=== PATIENT | male | born 1985 | race Caucasian/White ===

== ENCOUNTER 2020-12-29 19:58 | Emergency (ER) | payer OTHER ==
[2020-12-29] MEDS ORDERED: Sodium Chloride 0.9% 10 ML Syringe FLUSH PRN (20:43)
[2020-12-29] MEDS ORDERED: Sodium Chloride 0.9% 1,000 ML IV SCH (20:45)
[2020-12-29] MEDS ORDERED: Clindamycin Phosphate in D5W 900 MG in Premix Bag 1 BAG IV ONE ×2 (20:46)
[2020-12-29] MEDS ORDERED: Ondansetron 4 MG/2 ML SDV IVPUSH ONE (20:47)
--- NOTE | 2020-12-29 20:53 | EDM.PDOC ---
ED HPI GENERAL MEDICAL PROBLEM - General Chief Complaint: ENT Problem Stated Complaint: FACIAL NUMBNESS AND TINGLING, SHAKING AND SOB Time Seen by Provider: 12/29/20 20:10 Source of Information: Reports: Patient History Limitations: Reports: No Limitations - History of Present Illness INITIAL COMMENTS - FREE TEXT/NARRATIVE: The patient presents with left sided facial pain. This started yesterday and he went to the walk in clinic today and he was prescribed clindamycin for a possible sinus infection or tooth infection. He took 2 doses today. He now has fever, chills, left sided head and facial pain. He has no chest pain, shortness of breath, cough, abdominal pain or vomiting. He has some nausea. He also has been "out of it" and not responding like normal according to his . He has no health problems. He said earlier his teeth did hurt but now it is more his face. He also has pain to the left ear. Onset: Gradual Duration: Day(s): Location: Reports: Face Quality: Reports: Sharp Severity: Moderate Improves with: Reports: None Worsens with: Reports: None Associated Symptoms: Reports: Fever/Chills, Headaches. Denies: Chest Pain, Cough, Nausea/Vomiting, Shortness of Breath Left Cheek Pain Score (Numeric/FACES): 8 - Related Data Allergies Allergy/AdvReac Type Severity Reaction Status Date / Time bee pollen Allergy Severe Cannot Verified 12/29/20 20:11 Remember cefaclor [From Ceclor] Allergy Severe Cannot Verified 12/29/20 20:11 Remember Penicillins Allergy Severe Cannot Verified 12/29/20 20:11 Remember Past Medical History Cardiovascular History: Reports: High Cholesterol Musculoskeletal History: Reports: Other (See Below) Other Musculoskeletal History: right shoulder and hip pain - Past Surgical History Musculoskeletal Surgical History: Reports: Other (See Below) Other Musculoskeletal Surgeries/Procedures:: right hip surgery x2 Social & Family History - Tobacco Use Tobacco Use Status *Q: Never Tobacco User Second Hand Smoke Exposure: No - Recreational Drug Use Recreational Drug Use: No ED ROS ENT - Review of Systems Review Of Systems: See Below Constitutional: Reports: Fever, Chills, Malaise, Weakness, Fatigue HEENT: Reports: Ear Pain, Other (left sided facial pain) Respiratory: Reports: No Symptoms Cardiovascular: Reports: No Symptoms Endocrine: Reports: No Symptoms GI/Abdominal: Reports: No Symptoms : Reports: No Symptoms Musculoskeletal: Reports: No Symptoms ED EXAM, ENT - Physical Exam Exam: See Below Exam Limited By: No Limitations General Appearance: Alert, No Apparent Distress Ears: Normal External Exam, Normal Canal, Normal TMs Nose: Normal Inspection Mouth/Throat: Other (Pain upon palpation to the left upper gum line with some erythema and edema. Throat looks normal.) Head: Atraumatic, Normocephalic, Other (pain upon palpation to the left side of his face) Neck: Normal Inspection, Supple, Non-Tender Respiratory/Chest: No Respiratory Distress, Lungs Clear, Normal Breath Sounds Cardiovascular: Regular Rate, Rhythm, No Edema, No Murmur GI/Abdominal: Soft, Non-Tender, No Organomegaly, No Mass Back: Normal Inspection Extremities: Normal Inspection Course - Vital Signs Last Recorded V/S: Last Vital Signs Temp 99.0 F 12/29/20 21:29 Pulse 109 H 12/29/20 21:29 Resp 16 12/29/20 21: BP 122/97 H 12/29/20 21:29 Pulse Ox 98 12/29/20 22:03 - Orders/Labs/Meds Orders: Active Orders 24 hr Category Date Time Status Cardiac Monitoring [RC] . DIRECTED Care 12/29/20 20:44 Active Peripheral IV Care [RC] . DIRECTED Care 12/29/20 20:44 Active Head wo Cont [CT] Stat Exams 12/29/20 20:44 Ordered Maxillofacial w/o CM [Max Facial Sinus wo Cont] [CT] Exams 12/29/20 20:45 Taken Stat Sodium Chloride 0.9% [Normal Saline] 1,000 ml Med 12/29/20 20:45 Active IV .BOLUS Sodium Chloride 0.9% [Saline Flush] Med 12/29/20 20:43 Active 10 ml FLUSH ASDIRECTED PRN Peripheral IV Insertion Adult [OM.PC] Stat Oth 12/29/20 20:43 Ordered Medication Orders Sodium Chloride (Normal Saline) 1,000 mls @ 1,000 mls/hr IV .BOLUS CALEB Last Admin: 12/29/20 21:19 Dose: 1,000 mls/hr Documented by: ARNULFO Sodium Chloride (Saline Flush) 10 ml FLUSH ASDIRECTED PRN PRN Reason: Keep Vein Open Last Admin: 12/29/20 21:20 Dose: 10 ml Documented by: ARNULFO Labs: Laboratory Tests 12/29/20 12/29/20 12/29/20 Range/Units 20:56 21:12 21:12 WBC 8.52 (4.23-9.07) K/mm3 RBC 4.64 (4.63-6.08) M/mm3 Hgb 15.0 (13.7-17.5) gm/dl Hct 44.7 (40.1-51.0) % MCV 96.3 H (79.0-92.2) fl MCH 32.3 H (25.7-32.2) pg MCHC 33.6 (32.2-35.5) g/dl RDW Std Deviation 47.3 H (35.1-43.9) fL Plt Count 176 (163-337) K/mm3 MPV 10.5 (9.4-12.3) fl Neut % (Auto) 95.2 H (34.0-67.9) % Lymph % (Auto) 3.5 L (21.8-53.1) % [place] % (Auto) 0.9 L (5.3-12.2) % Eos % (Auto) 0.2 L (0.8-7.0) Baso % (Auto) 0.1 (0.1-1.2) % Neut # (Auto) 8.10 H (1.78-5.38) K/mm3 Lymph # (Auto) 0.30 L (1.32-3.57) K/mm3 [place] # (Auto) 0.08 L (0.30-0.82) K/mm3 Eos # (Auto) 0.02 L (0.04-0.54) K/mm3 Baso # (Auto) 0.01 (0.01-0.08) K/mm3 Manual Slide Review Abnormal smear Sodium 139 (136-145) mEq/L Potassium 4.0 (3.5-5.1) mEq/L Chloride 98 (98-107) mEq/L Carbon Dioxide 29 (21-32) mEq/L Anion Gap 16.0 H (5-15) BUN 16 (7-18) mg/dL Creatinine 1.4 H (0.7-1.3) mg/dL Est Cr Clr Drug Dosing 81.60 mL/min Estimated GFR (MDRD) 58 (>60) mL/min BUN/Creatinine Ratio 11.4 L (14-18) Glucose 131 H (74-106) mg/dL Calcium 9.6 (8.5-10.1) mg/dL Total Bilirubin 2.0 H (0.2-1.0) mg/dL AST 12 L (15-37) U/L ALT 30 (16-63) U/L Alkaline Phosphatase 77 (46-116) U/L C-Reactive Protein 11.2 H* (<1.0) mg/dL Total Protein 8.2 (6.4-8.2) g/dl Albumin 4.5 (3.4-5.0) g/dl Globulin 3.7 gm/dL Albumin/Globulin Ratio 1.2 (1-2) Influenza Type A RNA Negative (NEGATIVE) Influenza Type B RNA Negative (NEGATIVE) SARS-CoV-2 RNA (DEXTER) Negative (NEGATIVE) Meds: Medications Generic Name Dose Route Start Last Admin Trade Name Benq PRN Reason Stop Dose Admin Sodium Chloride 1,000 mls @ 1,000 mls/hr 12/29/20 20:45 12/29/20 21:19 Normal Saline IV 1,000 mls/hr .BOLUS CALEB Administration Sodium Chloride 10 ml 12/29/20 20:43 12/29/20 21:20 Saline Flush FLUSH 10 ml ASDIRECTED PRN Administration Keep Vein Open Discontinued Medications Generic Name Dose Route Start Last Admin Trade Name Lily PRN Reason Stop Dose Admin Hydromorphone HCl 0.5 mg 12/29/20 21:56 12/29/20 22:01 Dilaudid IVPUSH 12/29/20 21:57 0.5 mg ONETIME ONE Administration Clindamycin Phosphate 900 mg/ 50 mls @ 100 mls/hr 12/29/20 20:46 12/29/20 21:18 Premix IV 12/29/20 21:15 100 mls/hr ONETIME ONE Administration Ondansetron HCl 4 mg 12/29/20 20:47 12/29/20 21:18 Zofran IVPUSH 12/29/20 20:48 4 mg ONETIME ONE Administration - Re-Assessments/Exams Free Text/Narrative Re-Assessment/Exam: 12/29/20 20:55 I ordered an IV NS 1L bolus, zofran 4mg IV, toradol 30mg IV, clindamycin 900mg IV, labs, and CT of his head and maxillofacial. 12/29/20 22:21 He had more pain so I ordered dilaudid 0.5mg IV. His oxygen saturations were going down before the dilaudid so I ordered some oxygen and his says he does have sleep apnea. He was sleeping when the oxygen saturations went down. His CBC looks good. His glucose is elevated at 131. His total bili was elevated at 2. His CRP is elevated at 11.2. His influenza and COVID [address] of his head shows no intracranial abnormality. The CT of his maxillofacial bones shows heterogeneous cerumen in the left auditory canal. Mild signs which may indicate left maxillary sinusitis. Ostiomeatal units are patent. There is left nasal septal deviation. 12/29/20 22:29 He has both a dental abscess and left maxillary sinusitis. The clindamycin should clear up both. I will keep him on that and give him some hydrocodone for pain. Departure - Departure Time of Disposition: 22:30 Disposition: Home, Self-Care 01 Condition: Good Clinical Impression: Left maxillary sinusitis, Dental abscess, Pain, dental - Discharge Information *PRESCRIPTION DRUG MONITORING PROGRAM REVIEWED*: Not Applicable *COPY OF PRESCRIPTION DRUG MONITORING REPORT IN PATIENT JEFFREY: Not Applicable Referrals: Camilla Collins MD [Primary Care Provider] - 1 Week Forms: ED Department Discharge, ED Return to Work/School Form Additional Instructions: Keep taking the clindamycin as prescribed. Take tylenol or motrin for any pain. If that does not help, try the hydrocodone. Follow up with a dentist in town. Please return if you are worse. Sepsis Event Note (ED) - Evaluation Sepsis Screening Result: No Definite Risk - Focused Exam Vital Signs: Vital Signs Temp Pulse Resp BP Pulse Ox Pulse Ox 12/29/20 22:03 98 12/29/20 22:00 88 L 12/29/20 21:29 99.0 F 109 H 16 122/97 H 94 L 12/29/20 20:40 103 H 135/87 99 12/29/20 20:06 98.9 F 107 H 16 161/101 H 95 - My Orders Last 24 Hours: My Active Orders 12/29/20 20:43 Sodium Chloride 0.9% [Saline Flush] 10 ml FLUSH ASDIRECTED PRN Peripheral IV Insertion Adult [OM.PC] Stat 12/29/20 20:44 Cardiac Monitoring [RC] . DIRECTED Peripheral IV Care [RC] . DIRECTED Head wo Cont [CT] Stat 12/29/20 20:45 Maxillofacial w/o CM [Max Facial Sinus wo Cont] [CT] Stat Sodium Chloride 0.9% [Normal Saline] 1,000 ml IV .BOLUS - Assessment/Plan Last 24 Hours: My Active Orders 12/29/20 20:43 Sodium Chloride 0.9% [Saline Flush] 10 ml FLUSH ASDIRECTED PRN Peripheral IV Insertion Adult [OM.PC] Stat 12/29/20 20:44 Cardiac Monitoring [RC] . DIRECTED Peripheral IV Care [RC] . DIRECTED Head wo Cont [CT] Stat 12/29/20 20:45 Maxillofacial w/o CM [Max Facial Sinus wo Cont] [CT] Stat Sodium Chloride 0.9% [Normal Saline] 1,000 ml IV .BOLUS
[2020-12-29 21:38] LABS: CORONAVIRUS COVID-19 NAA NEGATIVE (NEGATIVE)
[2020-12-29] MEDS ORDERED: HYDROmorphone 0.5 MG/0.5 ML Syringe IVPUSH ONE (21:56)
--- NOTE | 2020-12-30 06:42 | CT ---
Head CT Technique: Multiple axial sections through the brain were obtained. Intravenous contrast was not utilized. Comparison: No prior intracranial imaging is available. Findings: Ventricles along with basal cisterns and sulci over the convexities are within normal limits for the patient's age. Small low density finding is noted within the lower medial right temporal lobe which is likely due to prominent perivascular space. No other abnormal parenchymal densities are seen. No evidence of intracranial hemorrhage. No midline shift or mass-effect is seen. Bone window settings were reviewed. No acute finding is seen within the paranasal sinuses or mastoid sinuses. No acute calvarial finding is appreciated. Impression: 1. Small prominent perivascular space within the medial right temporal lobe. This is believed to be incidental. 2. Nothing acute is appreciated on noncontrast head CT study. Diagnostic code #2 I agree with preliminary report from [facility], finalized on 12/29/20, 11:04 PM [employer]CHITECTURE [employer]ACULT[employer] MEMBER
--- NOTE | 2020-12-30 06:45 | CT ---
CT facial bones Technique: Multiple axial sections were obtained through the facial bones. Reconstructed coronal images were obtained. Comparison: Minimal mucosal thickening and probable small retention cyst is seen within the inferior left maxillary sinus. Other visualized paranasal sinuses are felt to be clear. No air-fluid levels are seen. Right and left globes are symmetric. No retrobulbar abnormality is seen. No acute fracture is appreciated. Mild nasal septal deviation is seen. Incidental cerumen is noted within the external auditory canal on the left side. Impression: 1. Slight findings of chronic sinusitis within the left maxillary sinus. 2. Incidental cerumen within left external auditory canal. 3. No acute osseous finding is seen. Diagnostic code #2 I agree with preliminary report from [facility], finalized on 12/29/20, 11 0 4 PM [employer] SALES CLERK
== END 2020-12-29 22:57 | disposition home or self-care (01) ==
LOC: JD.ED 19:58
DX: K04.7 Periapical abscess without sinus (principal); J32.0 Chronic maxillary sinusitis; R79.82 Elevated C-reactive protein (CRP); Z91.030 Bee allergy status; Z88.1 Allergy status to other antibiotic agents; Z88.0 Allergy status to penicillin; Z20.822 Contact with and (suspected) exposure to COVID-19
CPT/HCPCS: 0240U; 36415; 70450; 70486; 80053; 85025; 86140; 96365; 96375; 99284; J1170; J2405; J3490; J7030

== ENCOUNTER 2022-05-28 12:04 | Emergency (ER) | payer OTHER ==
[2022-05-28 14:20] LABS: CORONAVIRUS COVID-19 NAA POSITIVE (NEGATIVE)
== END 2022-05-28 14:47 | disposition home or self-care (01) ==
LOC: JD.ED 12:04
DX: U07.1 COVID-19 (principal); Z91.030 Bee allergy status; Z88.1 Allergy status to other antibiotic agents; Z88.0 Allergy status to penicillin; Z79.899 Other long term (current) drug therapy
CPT/HCPCS: 0240U; 36415; 71045; 80053; 85025; 86140; 99283

== ENCOUNTER 2025-01-15 20:54 | Emergency (ER) | payer OTHER ==
[2025-01-15] MEDS: Clindamycin HCl 150 MG Cap PO STA (22:29)
== END 2025-01-15 22:32 | disposition home or self-care (01) ==
LOC: JD.ED 20:54
DX: T81.49XA Infection following a procedure, other surgical site, initial encounter (principal); I10 Essential (primary) hypertension; E11.9 Type 2 diabetes mellitus without complications; E78.00 Pure hypercholesterolemia, unspecified; K91.89 Other postprocedural complications and disorders of digestive system; Z86.16 Personal history of COVID-19; Z91.018 Allergy to other foods; Z88.0 Allergy status to penicillin; Z88.1 Allergy status to other antibiotic agents; Z79.84 Long term (current) use of oral hypoglycemic drugs; Z79.899 Other long term (current) drug therapy
CPT/HCPCS: 99283; A9270